=== PATIENT | female | born 2000 | race African-American/Black ===

== ENCOUNTER 2022-09-07 09:30 | Emergency (ER) | payer SELFPAY ==
[~2022-09-07] VITALS: Ht 170.2 cm; Wt 56.8 kg
[2022-09-07 09:53] VITALS: BP 128/76
[2022-09-07] MEDS ORDERED: AZIT250T8 PO (10:26)
[2022-09-07] MEDS ORDERED: ACET-1080 PO (10:26)
[2022-09-07] MEDS ORDERED: ACETAMINOPHEN 325 MG TAB PO ONE (10:30)
[2022-09-07] MEDS ORDERED: cefTRIAXone SOD 1,000 MG VL IM ONE (10:30)
== END 2022-09-07 10:50 | disposition home or self-care (01) ==
LOC: ER 09:30 → EDBD 09:30 → ER 10:50
DX: O99.511 Diseases of the respiratory system complicating pregnancy, first trimester (principal); J03.90 Acute tonsillitis, unspecified; Z79.899 Other long term (current) drug therapy; Z3A.08 8 weeks gestation of pregnancy
CPT/HCPCS: 96372; 99283; J0696

== ENCOUNTER 2022-09-11 08:03 | Emergency (ER) | payer MEDICAID, OTHER ==
[~2022-09-11] VITALS: Ht 162.6 cm; Wt 53.0 kg
[~2022-09-11 08:03] MED LIST: ACET-1080 PO; AZIT250T8 PO
[2022-09-11 08:43] LABS: Eosinophils # (auto) 0.1 10 ^3/uL (0-0.8); Eosinophils % (auto) 0.8 % (0.0-7.0); Lymphocytes # (auto) 1.7 10 ^3/uL (0.4-5.4)
[2022-09-11 08:45] LABS: Basophils # (auto) 0 10 ^3/uL (0-0.2); Basophils % (auto) 0.3 % (0.0-2.0); Hemoglobin 12.1 g/dL (12.2-16.2); Lymphocytes % (auto) 15.8 % (10.0-50.0); Mean Corpuscular Hemoglobin 27.1 pg (28.0-32.0); Mean Corpuscular Hgb Conc. 33.6 g/dL (32.0-36.0); Mean Corpuscular Volume 80.7 fL (80.0-100.0); Monocytes % (auto) 8.9 % (0.0-12.0); Neutrophils # (auto) 7.9 10 ^3/uL (1.6-8.6); Neutrophils % (auto) 74.2 % (37.0-80.0); Red Blood Cells 4.46 10^6/uL (4.0-5.20); Red Cell Distribution Width 13.4 % (11.8-14.3); White Blood Cell 10.7 10^3/uL (4.4-10.8)
[2022-09-11 08:56] LABS: Albumin 3.1 g/dL (3.4-5.0); Calcium 9.3 mg/dL (8.5-10.1); Potassium 3.8 mmol/L (3.5-5.1)
[2022-09-11 08:59] LABS: BUN/Creatinine Ratio 13.3
[2022-09-11 09:08] LABS: Bilirubin, Total 0.2 mg/dL (0.2-1.0); Total Protein 6.8 g/dL (6.4-8.2)
[2022-09-11 10:56] LABS: Urine Bacteria FEW /hpf (None Seen); Urine Blood Negative /uL (Negative); Urine WBC 12 /hpf (0 - 5)
[2022-09-11] MEDS ORDERED: CEPH-510 PO (11:40)
[2022-09-11 11:53] VITALS: BP 115/67
== END 2022-09-11 11:55 | disposition home or self-care (01) ==
LOC: ER 08:03
DX: O23.41 Unspecified infection of urinary tract in pregnancy, first trimester (principal); N39.0 Urinary tract infection, site not specified; R10.2 Pelvic and perineal pain; Z3A.13 13 weeks gestation of pregnancy
CPT/HCPCS: 36415; 76801; 80053; 81001; 84702; 85025